=== PATIENT | female | born 1985 | race African-American/Black ===

== ENCOUNTER 2017-04-15 17:38 | Emergency (ER) | payer OTHER ==
[~2017-04-15] VITALS: Ht 172.7 cm; Wt 64.0 kg
[2017-04-15 21:00] VITALS: BP 114/79
== END 2017-04-15 22:01 | disposition left against medical advice (07) ==
LOC: ER 18:47
DX: S16.1XXA Strain of muscle, fascia and tendon at neck level, initial encounter (principal); R07.89 Other chest pain; V89.2XXA Person injured in unspecified motor-vehicle accident, traffic, initial encounter; Y93.89 Activity, other specified; Y92.410 Unspecified street and highway as the place of occurrence of the external cause; Y99.8 Other external cause status
CPT/HCPCS: 72125; 81025; 99284